=== PATIENT | female | born 1995 | race Caucasian/White ===

== ENCOUNTER 2020-02-17 18:55 | Emergency (ER) | payer BC ==
[~2020-02-17] VITALS: Ht 154.9 cm; Wt 60.6 kg
[2020-02-17 18:59] VITALS: Ht 154.9 cm; Wt 60.6 kg
[2020-02-17 21:31] VITALS: BP 116/70
== END 2020-02-17 21:40 | disposition home or self-care (01) ==
LOC: ED 18:55
DX: T78.40XA Allergy, unspecified, initial encounter (principal); J45.909 Unspecified asthma, uncomplicated; Z91.010 Allergy to peanuts; X58.XXXA Exposure to other specified factors, initial encounter
CPT/HCPCS: J1200; J7512; J7613; Q0162